=== PATIENT | female | born 1995 | race Caucasian/White ===

== ENCOUNTER 2019-03-15 19:47 | Inpatient (IN) ==
--- NOTE | 2019-03-15 20:20 | PROVIDER DOCUMENTATION ---
This chart was entered by Maria D Ragsdale Scribe, acting as scribe for Ifeanyi Medina MD. HPI-Abdominal Pain/GI Problem - General Chief Complaint: Abdominal Pain Stated Complaint: N/V/D - GI PAIN Time Seen by Provider: 03/15/19 19:55 Source: patient Allergies/Adverse Reactions: Patient Allergies Allergy/AdvReac Type Severity Reaction Status Date / Time Penicillins Allergy HIVES Verified 03/15/19 19:54 Home Medications: Home Medication List Medication Instructions Recorded Confirmed Last Taken Type Ondansetron [Zofran] 4 mg PO Q6H PRN PRN #20 tab 05/13/18 03/15/19 Unknown Rx - History of Present Illness-ABD Nature of Presenting Problems: Pt is 23/F presenting to ED w/ upper ABD pain w n/v/d that started yesterday. Pt sts that she gets pain and then vomiting only after eating. Pt has hx of fatty liver dx last April, but says that she has had no problems since. Pt sts that she has also had some orange colored urine w/ foul smell recently Abdominal Pain Onset Location: reports: epigastric Pain Radiation: reports: no radiation Quality of Pain: reports: aching Severity in ED: reports: mild Onset/Duration: reports: just prior to arrival Timing: reports: intermittent Activities at Onset: reports: none Exposure to sick contacts?: No Modifying Factors: improves with: nothing Associated Symptoms: reports: diarrhea, nausea, vomiting. denies: shortness of breath Last BM: unsure Dark Stools Present?: reports: none noticed Rectal Bleeding: reports: none Rectal Pain: reports: none Emesis Description: reports: none Bruising or Bleeding Gums?: No Similar Symptoms Previously?: No Recently seen or treated by another doctor?: No Review of Systems - Adult - REVIEW OF SYSTEMS - ADULT Constitutional: reports: no symptoms reported. denies: chills, fever Ears, Nose, Mouth & Throat: reports: no symptoms reported Cardiovascular: reports: no symptoms reported. denies: chest pain Respiratory: reports: no symptoms reported. denies: shortness of breath Gastrointestinal: reports: abdominal pain, diarrhea, nausea, vomiting Genitourinary: reports: other (orange, foul smelling urine) Musculoskeletal: reports: no symptoms reported Integumentary: reports: no symptoms reported Neurological: denies: dizziness/vertigo, headache/migraines Psychiatric: reports: no symptoms reported Endocrine: reports: no symptoms reported Hematologic/Lymphatic: reports: no symptoms reported Allergic/Immunologic: reports: no symptoms reported All Other Systems: Reviewed and Negative Past History - Adult - PAST MEDICAL HISTORY-ADULT Review of Records: reports: Old Records Reviewed, Nursing Assessment Review, Medications Reviewed, Social history reviewed & non-contributory. Major Childhood Illnesses: reports: denies history Cardiovascular: reports: denies history Respiratory: reports: denies history Gastrointestinal: reports: denies history Obstetrical/Gynecological: reports: denies history Genitourinary: reports: denies history Musculoskeletal: reports: denies history Neurological: reports: denies history Endocrine/Immune: reports: denies history Other Conditions: reports: denies history - PRIOR SURGERIES/PROCEDURES Surgical/Procedure History: reports: orthopedic (extremity) - PRIOR HOSPITALIZATIONS Prior Hospitalizations: reports: for other non-related - IMMUNIZATION STATUS Childhood Immunizations: UTD Flu Vaccine: See Nurse Assessment - FAMILY HISTORY Family History: reviewed, not pertinent - SOCIAL HISTORY Smoking: denies, non-smoker Substance Use: none/never Alcohol Use Frequency: rarely Living Situation: family Physical Exam-General - PHYSICAL EXAM-ADULT Initial Vital Signs Reviewed: Yes - CONSTITUTIONAL General Appearance: appears well, alert, no apparent distress - EYES Eyes: PERRL/EOMI, pink conjunctivae - HEAD, EARS, NOSE, MOUTH & THROAT HENMT: moist mucous membranes - NECK Neck: non-tender, full range of motion, supple, normal inspection - RESPIRATORY Respiratory: lungs clear - CARDIOVASCULAR Cardiovascular: regular rate, rhythm - GASTROINTESTINAL (ABDOMEN) Abdominal Exam: normal bowel sounds, soft, tenderness (upper ABD tenderness upon palpation) - LYMPHATIC Lymphatic: no adenopathy - MUSCULOSKELETAL Back Exam: normal inspection Extremity: normal range of motion, non-tender, normal gait, normal inspection - SKIN Integumentary: normal color, warm/dry - NEUROLOGIC Neurologic: grossly normal - PSYCHIATRIC Psych/Mental Status: normal mood/affect, normal thought content, normal thought process, oriented x 3 Progress - PLAN OF CARE/RESULTS Progress/Plan/Lab Results: Vital Signs - 8 hr 03/15/19 19:52 Temperature 98.0 F Pulse Rate 74 Respiratory Rate 18 Blood Pressure 109/71 O2 Sat by Pulse Oximetry 98 Bedside Urine ED: Urine Bedside Start: 03/15/19 19:56 Freq: ORDERED Status: Active Protocol: Activity Type Activity Date Activity User E-Sign Co-Sign Detail Recorded Client Recorded Date Recorded By Document 03/15/19 20:05 [id number] 03/15/19 20:05 [id number] 03/15/19 20:05 Point of Care [Bedside Point of Care] -Lot # [id number] - Results Negative -Control Line Visible? Yes Orders Category Date Time Status Saline Loc DIRECTED Care 03/15/19 19:55 Active Urine Preg [ED: Urine Bedside] ORDERED Care 03/15/19 19:56 Active NPO Diet 03/15/19 19:55 Active CBC WITH ELECTRONIC DIFF [HEME] Stat Lab 03/15/19 19:55 Ordered COMPREHENSIVE METABOLIC PANEL [CHEM] Stat Lab 03/15/19 19:55 Uncollected LIPASE [CHEM] Stat Lab 03/15/19 19:[address] W/POSS RFLX CULT [URINALYSIS] Stat Lab 03/15/19 20:00 Received Result Diagrams: 03/15/19 20:15 03/15/19 20:15 - ULTRASOUND (By Radiology) 1 US Study: Gallbladder Impression: Abnormal (EXAM: US GB < RUQ (LIMITED) 03/15/2019 HISTORY: upper abdomen pain TECHNIQUE: Right upper quadrant ultrasound COMMENT: The aorta and inferior vena cava are within normal limits where they're visible. The pancreas is poorly seen. The liver is slightly hyperechoic suggesting fatty change. The gallbladder contains a stone measuring over a centimeter in the neck and multiple smaller stones. The gallbladder wall is not thickened and there is no evidence of para cholecystic fluid. There is no sonographic Hoff sign. There is no evidence of biliary dilatation the common bile duct measuring less than 5 mm. There is antegrade flow in the portal vein. The right kidney is without evidence of hydronephrosis or mass. There are no abnormal fluid collections. IMPRESSION: Cholelithiasis. Hepatic steatosis. Electronically signed by Toney Darling 03/15/2019 9:55 PM 03/15/192154 Interpreting Phys ician: Toney Darling MD Dictated Date/Time: 03/15/192152 cc: Ifeanyi Medina MD; None,PCP) - CONSULTS/PCP/HOSPITALIST Notification #1 *Consult/PCP/Hospitalist*: Dr. Hendrix Time Discussed: 22:11 Reason/Comments: Pt will transfer to [facility] Departure - Departure Date of Disposition Decision: 03/15/19 Time of Disposition Decision: 22:15 DIAGNOSIS: Biliary colic, Hyperbilirubinemia, Elevated liver enzymes Cholelithiasis Qualifiers: Cholelithiasis location: gallbladder and bile duct Cholecystitis presence: without cholecystitis Biliary obstruction: without biliary obstruction Qualified Code(s): K80.70 - Calculus of gallbladder and bile duct without cholecystitis without obstruction Disposition: ADMITTED INPATIENT 09 Certified Medical Emergency: Emergent Condition: Stable Referrals and Follow-Ups: None,PCP [Primary Care Provider] - - Critical Care Note This patient required my direct & personal management of CC.: No Attestation - Physician/ MATTHIEU Attestation Patient care was provided by Advanced Practice Provider:: No The physician spent face to face time with patient:: Yes Advanced Practice Provider documentation review:: Supervising physician onsite and consulted in the evaluation and care of this patient. The physician did have a face to face encounter with the patient. This chart was documented by the indicated scribe, (Maria D Ragsdale, Kyree) and accurately reflects the services I performed and decisions made by me, Ifeanyi Medina MD, as attested by the provider's signature.
[2019-03-15 20:25] LABS: BILIRUBIN URINE 2+ (NEGATIVE); BLOOD URINE NEGATIVE (NEGATIVE); CLARITY SL. CLOUDY (CLEAR); COLOR YELLOW; GLUCOSE URINE NEGATIVE (NEGATIVE); KETONE URINE TRACE mg/dL (NEGATIVE); LEUKOCYTES URINE 1+ (NEGATIVE); NITRITE URINE NEGATIVE (NEGATIVE); PH URINE 6.5; PROTEIN URINE TRACE mg/dL (NEGATIVE); SP GRAVITY URINE 1.015; UROBILINOGEN URINE 8 mg/dL
[2019-03-15 20:26] LABS: BASO# 0.03 X1000 (0.0-0.2); BASO% 0.3 % (0.0-0.8); EOS# 0.05 X1000 (0.0-0.7); EOS% 0.4 % (0.0-10.0); HEMATOCRIT 44.1 % (37.0-47.0); HEMOGLOBIN 14.3 g/dL (12.0-16.0); IMM GRAN# 0.01 X1000 (0.0-0.04); IMM GRAN% 0.1 % (0.0-0.5); LYMPH% 10.9 % (20.5-51.1); MCH 27.7 PG (27-31); MCHC 32.4 g/dL (33-37); MCV 85.3 FL (81-99); MONO# 0.59 X1000 (0.11-0.59); MONO% 4.9 % (1.7-9.3); MPV 9.8 FL (7.4-10.4); NEUT% 83.4 % (42.2-75.2); PLT 373 X1000 (130-400); RBC 5.17 XMIL (4.2-5.4); RDW 13.5 % (11.5-14.5); WBC 11.98 X1000 (4.8-10.8)
[2019-03-15 20:27] LABS: URINE SOURCE CLEAN CATCH
[2019-03-15 20:28] LABS: URINE BACTERIA 4+ /HFP; URINE CAST NONE SEEN /LPF; URINE CRYSTAL NONE SEEN /HPF; URINE EPITHELIAL CELLS >10 /HPF (<10); URINE RBC <10 /HPF (<10); URINE WBC <10 /HPF (<10); URINE YEAST NONE SEEN /HPF
[2019-03-15 20:49] LABS: AGAP 13; ALBUMIN 4.4 g/dL (3.5-5.0); ALKALINE PHOSPHATASE 207 U/L (32-104); BUN 6 mg/dL (8-22); CALCIUM 9.4 mg/dL (8.8-10.2); CHLORIDE 101 mmol/L (98-107); COSMO 277; CREATININE 0.5 mg/dL (0.5-0.9); ESTIMATED GFR > 60; GLUCOSE 107 mg/dL (70-104); GOT 610 U/L (10-30); LIPASE 128 U/L (13-60); SODIUM 140 mmol/L (136-145); TCO2 26 mmol/L (25-35); TOTAL PROTEIN 8.1 g/dL (6.3-8.3)
[2019-03-15 21:04] LABS: GPT 1023 U/L (10-36)
--- NOTE | 2019-03-15 21:57 | Diag Imaging Result Doc PS360 ---
EXAM: US GB < RUQ (LIMITED) 03/15/2019 HISTORY: upper abdomen pain TECHNIQUE: Right upper quadrant ultrasound COMMENT: The aorta and inferior vena cava are within normal limits where they're visible. The pancreas is poorly seen. The liver is slightly hyperechoic suggesting fatty change. The gallbladder contains a stone measuring over a centimeter in the neck and multiple smaller stones. The gallbladder wall is not thickened and there is no evidence of para cholecystic fluid. There is no sonographic Hoff sign. There is no evidence of biliary dilatation the common bile duct measuring less than 5 mm. There is antegrade flow in the portal vein. The right kidney is without evidence of hydronephrosis or mass. There are no abnormal fluid collections. IMPRESSION: Cholelithiasis. Hepatic steatosis. Electronically signed by Toney Darling 03/15/2019 9:55 PM
[2019-03-15] MEDS ORDERED: NS 1,000 ML IV ONE (22:15)
[2019-03-15] MEDS ORDERED: DILAUDID IV PRN (22:15)
[2019-03-16] MEDS: ZOFRAN IV PRN (02:07)
[2019-03-16] MEDS ORDERED: BENADRYL PO ONE (04:37)
[2019-03-16] MEDS: LEVAQUIN 750 MG/D5W 750 MG/150 ML IVPB IV SCH (05:45)
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
[2019-03-16] MEDS: FLAGYL 500 MG/NS 500 MG/100 ML IVPB IV SCH ×2 (08:36→20:09)
[2019-03-16] MEDS ORDERED: XYLOCAINE-MPF 2% ONE (09:51)
[2019-03-16] MEDS ORDERED: VERSED ONE (09:51)
[2019-03-16] MEDS ORDERED: SODIUM CHLORIDE 0.9% 10 ML ONE (09:52)
[2019-03-16] MEDS ORDERED: DIPRIVAN 1% ONE (09:52)
[2019-03-16] MEDS ORDERED: QUELICIN (DOSE) ONE (09:52)
[2019-03-16] MEDS ORDERED: FENTANYL ONE (09:52)
[2019-03-16] MEDS ORDERED: NORCURON ONE (09:52)
[2019-03-16] MEDS ORDERED: LR 1,000 ML ONE (10:10)
[2019-03-16] MEDS ORDERED: SODIUM CHLORIDE 0.9% ONE (10:10)
[2019-03-16] MEDS ORDERED: SENSORCAINE 0.5%-EPI 1:200,000 ONE (10:10)
[2019-03-16] MEDS ORDERED: REGLAN ONE (10:26)
[2019-03-16] MEDS ORDERED: PEPCID ONE (10:28)
[2019-03-16] MEDS ORDERED: ZOFRAN ONE (10:39)
[2019-03-16] MEDS ORDERED: DECADRON ONE (10:39)
[2019-03-16] MEDS ORDERED: NEOSTIGMINE ONE (11:33)
[2019-03-16] MEDS ORDERED: ROBINUL ONE (11:33)
[2019-03-16] MEDS ORDERED: MORPHINE ONE ×2 (11:49→12:01)
--- NOTE | 2019-03-16 12:07 | Diag Imaging Result Doc PS360 ---
EXAM: OPERATIVE CHOLANGIOGRAM HISTORY: CHOLECYSTECTOMY TECHNIQUE: Intraoperative cholangiogram, three views COMPARISON: None. FINDINGS: There are at least three filling defects in the distal common bile duct. Contrast does enter the small bowel. IMPRESSION: Nonobstructing stones in the distal common bile duct. Electronically signed by Chivo Kim 03/16/2019 12:05 PM
[2019-03-16] MEDS: MORPHINE ONE ×3 (12:11→12:20)
[2019-03-16] MEDS ORDERED: PHENERGAN ONE (12:24)
[2019-03-16] MEDS: NORCO-5 PO PRN ×2 (14:31→20:09)
--- NOTE | 2019-03-16 15:04 | OPERATIVE NOTE ---
PROCEDURE DATE: 03/16/2019 PREOPERATIVE DIAGNOSES: 1. Possible common bile duct stone. 2. Hepatic steatosis with elevated liver function test. POSTOPERATIVE DIAGNOSES: 1. Common bile duct stone. 2. Hepatic steatosis. 3. Cholelithiasis. PROCEDURE: 1. Laparoscopic cholecystectomy with cholangiogram with interpretation. 2. Laparoscopic wedge resection of segment 4 of the liver. SURGEON: Sanjeev Hendrix MD. MICROBIOLOGY ANALYST: None. ANESTHESIA: General endotracheal. OPERATIVE FINDINGS: Cholangiogram showed what looked like almost 3 distal common bile duct stones. They were not completely obstructing, but were present. COMPLICATIONS: None at the time of dictation. ESTIMATED BLOOD LOSS: 20 mL. SPECIMENS REMOVED: Gallbladder. BRIEF HISTORY: A 23-year-old female presenting with epigastric and right upper quadrant pain. She had issues with elevated liver function tests in the past. She had been worked up including hepatitis panel which was all negative. It was felt that this could be related to her gallbladder. The risks, benefits, and alternatives for cholecystectomy were discussed. All questions answered. DESCRIPTION OF PROCEDURE: After informed consent was obtained, patient was brought to the operative theater, transferred to the operative table, placed in the supine position. General endotracheal anesthesia was then performed without complication. A formal time- out was then performed confirming patient, date, procedure, all in agreement. At that time, attention was given to the abdomen. An infraumbilical incision was made through which using the Optiview technique we inserted a 12 mm trocar, connected to insufflation, pneumoperitoneum was achieved. Under direct visualization we placed 3 more trocars, all 5 mm, 1 in the subxiphoid, 2 in the right upper quadrant. Using these, the gallbladder was identified and retracted cephalad. The liver itself appeared to be slightly enlarged but not abnormal. Once we had retracted cephalad we dissected out the cystic duct and cystic artery to achieve the critical view of safety. We placed 1 clip on the cystic duct. We could see a very, what looked like visually, enlarged common bile duct. But we placed the initial clip on the gallbladder side of the cystic duct, made a ductotomy, passed the cholangiogram catheter to it, and shot a cholangiogram which showed the filling defects suggestive of stone, at least 2, maybe 3 filling defects. I did see the takeoff of the left and right hepatic duct and the contrast entering into the duodenum so I do not think these stones were completely obstructing but they are least present and she has had a biliary obstruction like pattern in her labs. We then completed placing the clips on the cystic duct after removing the catheter. We placed multiple clips on the cystic artery and ligated both the cystic duct and cystic artery. We then dissected the gallbladder off the gallbladder fossa. We then elected to do a liver biopsy. We did this because she has had elevated liver function test and a workup that was inconclusive and given her age with a fatty liver disease, I felt that we needed to get some tissue diagnosis. Using the electrocautery we did a wedge resection of segment 4 of the liver, maintaining hemostasis with electrocautery. Once we were completed, I did not see any active bleeding or drainage of bile. We placed this and the gallbladder into the EndoCatch and brought it out through the infraumbilical incision, which had to be slightly enlarged to accommodate the burden. We then closed the infraumbilical incision with 0 Vicryl on a Dannie-Vlad device. After irrigating out the abdomen until suction fluid was clear, we then closed all skin incisions with 4-0 Monocryl. The patient tolerated the procedure well. We will keep her overnight and have GI see her. cc: Sanjeev Hendrix MD MTDAscencion
[2019-03-17] MEDS: NORCO-5 PO PRN ×3 (03:19→19:07)
[2019-03-17] MEDS: FLAGYL 500 MG/NS 500 MG/100 ML IVPB IV SCH ×3 (04:20→21:57)
[2019-03-17] MEDS: LEVAQUIN 750 MG/D5W 750 MG/150 ML IVPB IV SCH (05:45)
[2019-03-17] MEDS: ZOFRAN IV PRN (06:02)
[2019-03-17] MEDS: MORPHINE IV PRN (06:02)
--- NOTE | 2019-03-17 07:01 | GENERAL SURGERY PROGRESS NOTE ---
DATE: 03/17/2019 SUBJECTIVE: Patient is having increased pain at this point this morning but otherwise has been doing okay. She complains of epigastric pain. OBJECTIVE: Vital Signs: Patient is currently afebrile. She does have a mild tachycardia at 107. General Exam: No acute distress but appears uncomfortable. Cardiovascular: Some mild tachycardia. Lungs: Grossly clear. Abdomen: Soft, tender to palpation epigastric. LABORATORY: Currently pending. ASSESSMENT AND PLAN: A 23-year-old, postop day #1 from laparoscopic cholecystectomy, liver biopsy and cholangiogram. Postoperative state: At this time, we will repeat her labs this morning. She could be having pain from retained air or even a flare of pancreatitis or even issues with the stones that were retained in her common bile duct. She is on antibiotics with Levaquin and Flagyl. GI has been consulted for possible ERCP. Hopefully they can do that here in the near future. We will follow up with the results of the labs this morning and continue supportive care. She does have p.o. and IV pain medicine ordered. cc: Sanjeev Hendrix MD
[2019-03-17 07:15] LABS: AGAP 13; ALBUMIN 3.8 g/dL (3.5-5.0); ALKALINE PHOSPHATASE 201 U/L (32-104); BUN 5 mg/dL (8-22); CALCIUM 8.8 mg/dL (8.8-10.2); CHLORIDE 101 mmol/L (98-107); COSMO 276; CREATININE 0.6 mg/dL (0.5-0.9); ESTIMATED GFR > 60; GLUCOSE 146 mg/dL (70-104); GOT 460 U/L (10-30); GPT 824 U/L (10-36); LIPASE 31 U/L (13-60); POTASSIUM 3.6 mmol/L (3.5-5.1); SODIUM 138 mmol/L (136-145); TCO2 24 mmol/L (25-35); TOTAL PROTEIN 7.7 g/dL (6.3-8.3)
[2019-03-17] MEDS ORDERED: BENADRYL PO PRN (14:50)
[2019-03-17] MEDS: PEPCID IV SCH (14:59)
--- NOTE | 2019-03-17 17:50 | CONSULTATION ---
DATE OF CONSULTATION: 03/17/2019 REASON FOR CONSULTATION: Distal common bile duct stone on the cholangiogram. HISTORY OF PRESENT ILLNESS: Ms. Strange is a 23-year-old female came to the hospital with a complaint of abdominal pain, nausea, vomiting, fever, chills. She complained that she had abdominal pain which was going on for the last 3 days, and had been to [facility] where they did her labs and found out that her bilirubin was elevated. Her last bowel movement was 3 days ago. She was complaining of the right upper quadrant pain in the epigastric area, and she said that nothing would relieve her, but when she took a shower and took ibuprofen, her stomach pain was a little better, but sometimes she had to throw up to get the relief, and noticed that her vomit was more of mucus. At present, she is complaining of abdominal pain in the incision area. She had a cholecystectomy done yesterday, and she has a 1 mid abdominal incision and 3 in the right upper quadrant, and complaints of dull pain in the incisional area. She has a strong family history of gallbladder disease. Her mom and sister both had gallbladder taken out. PAST MEDICAL HISTORY: Obesity. PAST SURGICAL HISTORY: Right foot surgery. SOCIAL HISTORY: She denies smoking and drinking. She is currently single and lives with her boyfriend. ALLERGIES: Penicillin. FAMILY HISTORY: Mom and sister has gallbladder disease HOME MEDICATIONS: Zofran. REVIEW OF SYSTEMS: As per HPI. Otherwise, 12-point review of systems is negative. PHYSICAL EXAMINATION: Vital Signs: Temperature is 97.9 degrees, pulse is 64, respirations are 17, blood pressure is 104/53, oxygen saturation is 95 on room air. Weight 209.4 pounds, BMI 32.9 kg per meter square. General: She is alert andoriented x3 and in no acute distress. HEENT: Pale conjunctivae. No icterus. PERRL. Neck: Supple. Cardiovascular: Regular rate and rhythm. No murmurs, rubs, or gallops heard on auscultation. Lungs: Clear to auscultation anterior and posterior barth. Abdomen is soft, tender in the epigastric area. She has a mid abdominal incision and 3 incisions in the right upper quadrant. Bowel sounds heard in all 4 quadrants, and they are active. Extremities: No cyanosis, clubbing, or edema noted, 2+ pedal pulses present bilaterally. Neurological: Alert and oriented x3, nonfocal. Cranial nerves 2 to 12 grossly intact. LABORATORY DATA: WBC is 11.98, RBC is 5.17, hemoglobin is 14.3, hematocrit is 44.1, platelet count of 373,000. Sodium is 138, potassium 3.6, chloride is 101, carbon dioxide is 24, anion gap is 13, BUN is 5, creatinine 0.6, glucose is 146, calcium is 8.8, and bilirubin is 1.90. AST is 460, ALT is 824, alkaline phosphatase 201. Urine on 03/15/2019 showed the clarity is cloudy, trace of protein, trace of ketones, bilirubin 2+, WBCs 1+. IMAGING: Abdominal ultrasound showed cholelithiasis, hepatic steatosis. Operative cholangiogram impression was nonobstructive stones in the distal common bile duct. ASSESSMENT AND PLAN: Obesity Status post cholecystectomy Elevated liver functions Distal common bile duct PLAN:. The plan is to do an ERCP tomorrow. Patient is currently on clear liquids, NPO after midnight. We will continue with GI prophylaxis, antiemetics, and antibiotics per her PCP. Risks, benefits, and alternatives of the procedure has been explained, patient acknowledges understanding of the plan of care. Risk of obesity has been discussed and advised patient to lose weight, follow a healthy diet and exercise regularly. This plan was discussed with Dr. Melchor and the patient, patient verbalizes understanding of the plan. Thank you for your consultation. Please call us for any questions or concerns. Dictated by CHRISTIANO Marrero for Ti Melchor MD cc: MD Sanjeev Peterson MD I have seen the patient myself and agree with the above plan of care. Please call us with any further questions or concerns. RUBY
[2019-03-18] MEDS: PEPCID IV SCH ×3 (01:14→13:59)
[2019-03-18] MEDS: SODIUM CHLORIDE 0.9% INJ SCH ×2 (01:15→11:01)
[2019-03-18] MEDS: NORCO-5 PO PRN ×2 (01:15→22:21)
[2019-03-18] MEDS: ZOFRAN IV PRN (05:19)
[2019-03-18] MEDS: MORPHINE IV PRN ×3 (05:22→12:43)
[2019-03-18] MEDS: FLAGYL 500 MG/NS 500 MG/100 ML IVPB IV SCH ×3 (05:27→20:14)
[2019-03-18] MEDS: LEVAQUIN 750 MG/D5W 750 MG/150 ML IVPB IV SCH (06:18)
--- NOTE | 2019-03-18 10:02 | GENERAL SURGERY PROGRESS NOTE ---
DATE: 03/18/2019 SUBJECTIVE: Patient is feeling better, and not having the same pain. OBJECTIVE: Vital Signs: Patient is currently afebrile. Her vital signs are stable. General: No acute distress. Cardiovascular: Regular rate and rhythm. Lungs: Grossly clear. Abdomen: Soft. Appropriately tender. LABORATORY: Reviewed from yesterday. Labs are trending down. ASSESSMENT AND PLAN: A 23-year-old female status post laparoscopic cholecystectomy with retained common bile duct stone. Common bile duct stone. At this time, she is scheduled to go undergo ERCP by Dr. Brito. We will follow up with the results. If she does okay and okay with GI, may consider discharge. If not, we may consider discharge in the morning. cc: Sanjeev Hendrix MD
[2019-03-18] MEDS ORDERED: XYLOCAINE-MPF 2% ONE (11:19)
[2019-03-18] MEDS ORDERED: DIPRIVAN 1% 500 MG/50 ML BOTTLE ONE (11:19)
[2019-03-18] MEDS ORDERED: FENTANYL ONE (11:22)
[2019-03-18] MEDS ORDERED: ZOFRAN ONE (11:41)
--- NOTE | 2019-03-18 13:02 | Diag Imaging Result Doc PS360 ---
ERCP-BILIARY AND PANCREATIC - 03/18/2019 INDICATION: CBD stones TECHNIQUE: The exam was performed by the patient's endoscopist. Six images were obtained. COMPARISON: None FINDINGS: Injection of the common bile duct with contrast demonstrated bile duct dilation. The biliary system with instrument with a wire and a snare. A common bile duct stent was placed in good position. IMPRESSION: No complication. Electronically signed by Danielito Wallace 03/18/2019 1:00 PM
--- NOTE | 2019-03-18 18:13 | OPERATIVE NOTE ---
PROCEDURE DATE: 03/18/2019 PROCEDURES: 1. Endoscopic retrograde cholangiopancreatography. 2. Endoscopic sphincterotomy. 3. Stone removal with basket. 4. Stent placement. PREOPERATIVE DIAGNOSIS: Common bile duct stone. POSTOPERATIVE DIAGNOSIS: Multiple stones, removed, stented. DESCRIPTION OF PROCEDURE: After informed consent and adequate intravenous sedation, the scope was introduced into the esophagus, stomach, and duodenum. Cholangiogram obtained. Patient had multiple stones. A sphincterotomy was done. The stones were removed with basket. At the end of the procedure a 10-Albanian, 5 cm stent was deployed. cc: MD Sanjeev Stephens MD
[2019-03-18] MEDS ORDERED: MILK OF MAGNESIA PO PRN (20:23)
[2019-03-18] MEDS ORDERED: DULCOLAX PO SCH (21:00)
[2019-03-19] MEDS: SODIUM CHLORIDE 0.9% INJ SCH (01:04)
[2019-03-19] MEDS: PEPCID IV SCH (01:04)
--- NOTE | 2019-03-19 06:44 | GENERAL SURGERY PROGRESS NOTE ---
DATE: 03/19/2019 The patient did well with ERCP, got multiple stones out. She does not have any kind of cystic duct leak. From a surgical point of view, she can go home. We will make arrangements. cc: Sanjeev Hendrix MD
[2019-03-19 07:26] VITALS: BP 99/66
[2019-03-19] MEDS: NORCO-5 PO PRN (08:56)
--- NOTE | 2019-03-20 07:29 | DISCHARGE SUMMARY ---
ADMISSION DATE: 03/15/2019 DISCHARGE DATE: 03/19/2019 ADMITTING DIAGNOSIS: Choledocholithiasis and possible cholangitis. DISCHARGE DIAGNOSIS: Status post laparoscopic cholecystectomy and ERCP. ADMITTING PHYSICIAN: Dr. Sanjeev Hendrix CONSULTATIONS: Dr. Melchor with Gastroenterology. PROCEDURES: 1. On 03/16/2019, patient underwent a laparoscopic cholecystectomy. 2. On 03/18/2019, patient underwent ERCP. BRIEF HISTORY AND COURSE OF STAY: The patient is a 23-year-old female who presented with obstructive like pattern with gallstones. She was admitted, and started on antibiotics. We took her to the operating room, and did a laparoscopic cholecystectomy, which she tolerated well. During the process, we had a cholangiogram which showed common bile duct stones. GI was consulted on 03/18/2019. They underwent the ERCP and removed multiple stone. She tolerated this well. It is felt that on the day of discharge she would be safe to be discharged home. She was up and ambulating tolerating p.o., tolerating p.o. pain medicine. She had been afebrile and doing well. Therefore, all arrangements were made. DISPOSITION: Home. DISCHARGE CONDITION: Stable. FOLLOW-UP: Patient is told to follow up with myself Dr. Hendrix and Dr. Brito. DISCHARGE MEDICATIONS: She was given prescription for pain medicine. cc: Sanjeev Hendrix MD
== END 2019-03-19 09:12 | disposition home or self-care (01) | DRG 419 ==
LOC: P.ED 19:47 → 4N 22:59
PROVIDERS: ADMIT Surgery; ATTEND Surgery
PROC: EN.ERCP (2019-03-18 11:50)